=== PATIENT | female | born 1990 | race Caucasian/White ===

== ENCOUNTER 2020-02-02 17:56 | Inpatient (IN) ==
[2020-02-02 18:31] LABS: Bilirubin,Urine Negative (Negative); Blood,Urine Negative (Negative); Clarity,Urine Clear (Clear); Color,Urine Yellow (Yellow); Glucose,Urine (UA) Normal (Normal); Ketones,Urine Negative (Negative); Leukocyte Esterase,Urine Small (Negative); Nitrite,Urine Negative (Negative); Protein,Urine Negative (Neg-Trace); Specific Gravity,Urine 1.025 (1.010-1.025); Urobilinogen,Urine Normal (Normal)
[2020-02-02 18:33] LABS: Basophils % 0.3 %; Eosinophils # 0.2 K/mcL (0.0-0.6); Eosinophils % 1.9 %; Hematocrit 40.8 % (35.3-44.9); Hemoglobin 13.4 g/dL (11.5-15.4); Immature Granulocytes % 0.3 % (0-4); Lymphocytes # 1.9 K/mcL (0.6-4.6); Lymphocytes % 18.4 %; Mean Corpuscular HGB Conc 32.8 g/dL (31.6-35.5); Mean Corpuscular Hemoglobin 29.8 pg (28.0-33.3); Mean Corpuscular Volume 90.9 fL (83.0-100.0); Mean Platelet Volume 10.8 fL (9.4-12.4); Monocytes # 0.8 K/mcL (0.0-1.3); Monocytes % 7.6 %; Neutrophils # 7.4 K/mcL (1.6-8.9); Platelet Count 231 K/mcL (140-400); Red Blood Count 4.49 M/mcL (3.82-4.97); Red Cell Distribution Width 12.1 % (11.5-14.5); Segmented Neutrophils % 71.5 %; White Blood Count 10.3 K/mcL (4.3-11.1)
[2020-02-02 18:33] LABS: Bacteria,Urine None Seen per hpf (None-Few); Hyaline Casts,Urine None Seen per lpf (None-Few); Squamous Epithelial Cell,Urine Many per lpf (None-Few)
[2020-02-02 18:41] LABS: Amphetamine Screen,Urine Positive ng/mL (Cutoff=1000); Barbiturate Screen,Urine Negative ng/mL (Cutoff=200); Benzodiazepines Screen,Urine Negative ng/mL (Cutoff=200); Cannabinoid Screen,Urine Negative ng/mL (Cutoff = 50); Cocaine Screen,Urine Negative ng/mL (Cutoff= 300); Opiate Screen,Urine Negative ng/mL (Cutoff=300); Phencyclidine Screen,Urine Negative ng/mL (Cutoff=25)
[2020-02-02 18:50] LABS: Acetaminophen < 10 mcg/mL (10-20); BUN/Creatinine Ratio 23 (6-26); Blood Urea Nitrogen 12 mg/dL (6-20); Calcium 9.4 mg/dL (8.6-10.3); Carbon Dioxide 22 mEq/L (23-29); Chloride 107 mEq/L (98-107); Chol/HDL Ratio 4.4 (0-4.9); Cholesterol 168 mg/dL (< 200); Ethanol < 10 mg/dL (Less than 10); Glucose 89 mg/dL (70-105); HDL Cholesterol 38 mg/dL (40-59); LDL Cholesterol,Calculated 98 mg/dL (0-99); Osmolality,Calculated 279 (280-300); Potassium 4.2 mEq/L (3.5-5.1); Salicylate < 2.5 mg/dL (15.0-30.0); Sodium 135 mEq/L (136-145); Triglycerides 159 mg/dL (< 150); eGFR For African Americans > 60 (> 60); eGFR For Non-African Americans > 60 (> 60)
[2020-02-02 18:55] LABS: Estimated Average Glucose 105 mg/dl
[2020-02-02] MEDS ORDERED: Mag Hydrox/Al Hydrox/Simeth 30 ML UDC PO PRN (20:47)
[2020-02-02] MEDS ORDERED: *HR* LORazepam 1 MG TABLET PO PRN (20:47)
[2020-02-02] MEDS ORDERED: Haloperidol Lactate 5 MG/ML VIAL IM PRN (20:47)
[2020-02-02] MEDS ORDERED: Acetaminophen 325 MG TABLET PO PRN (20:47)
[2020-02-02] MEDS ORDERED: *HR* LORazepam 2 MG/ML VIAL IM PRN (20:47)
[2020-02-02] MEDS ORDERED: MOM Conc 10 ML UD.LIQ PO PRN (20:47)
[2020-02-02] MEDS ORDERED: haloperidoL 5 MG TABLET PO PRN (20:47)
[2020-02-02] MEDS ORDERED: Nicotine 21 MG PATCH.TD24 TD SCH (21:00)
[2020-02-02] MEDS: QUEtiapine Fumarate 25 MG TABLET PO PRN (23:22)
[2020-02-02] MEDS: hydrOXYzine pamoate 25 MG CAPSULE PO PRN (23:22)
[2020-02-03] MEDS: hydrOXYzine pamoate 25 MG CAPSULE PO PRN (20:56)
[2020-02-03] MEDS: QUEtiapine Fumarate 25 MG TABLET PO PRN (20:56)
[2020-02-04 09:07] VITALS: BP 122/74
== END 2020-02-04 17:55 | disposition home or self-care (01) | DRG 751 ==
LOC: EMEROOARM 17:56 → 1ANU 20:41
PROVIDERS: ADMIT Psychiatry & Neurology Psychiatry; ATTEND Psychiatry & Neurology Psychiatry